=== PATIENT | male | born 1950 | race Caucasian/White ===

== ENCOUNTER 2016-11-15 08:46 | Day surgery (SDC) | payer BC, OTHER ==
[2016-11-15 09:27] VITALS: BMI 26.6
[2016-11-15] MEDS ORDERED: PROPOFOL 20 ML ONE ×3 (09:50)
[2016-11-15 11:26] VITALS: TEMP 97.4
[2016-11-15 12:24] VITALS: BP 124/64; PULSE 60
--- NOTE | 2016-11-16 12:14 | PATH ---
Surgical Pathology Report Patient Name: MAIKEL JULIEN [facility]. Rec. #: [id number] /Age/Gender: 1950 (Age: 65) / M Account: [id number] Location: ASU-ENDOSCOPY Taken: 11/15/2016 Received: 11/15/2016 Reported: 11/16/2016 Physicians: Bijan Savage M.D. Specimen(s) Received A: BX RECTAL POLYPS x3 B: POLYP SIGMOID C: DESCENDING COLON POLYP D: MID TRANSVERSE COLON POLYP E: HEPATIC FLEXURE COLON POLYP F: BX CECAL POLYP G: PROXIMAL TRANSVERSE COLON POLPYP Clinical History Screening Multiple colon polyps, diverticulosis Final Diagnosis A. RECTUM, POLYPS x3, BIOPSY: TUBULAR ADENOMA x1. FRAGMENTS OF HYPERPLASTIC POLYPS x5. B. COLON, SIGMOID, POLYPECTOMY: TUBULOVILLOUS ADENOMA. Comment: A cauterized margin of resection appears free of adenoma; however, the completeness of resection is best assessed endoscopically. C. COLON, DESCENDING, POLYP, POLYPECTOMY: TUBULAR ADENOMA. D. COLON, MID TRANSVERSE, POLYP, POLYPECTOMY: HYPERPLASTIC TYPE POLYP WITH FEATURES OF SESSILE SERRATED ADENOMA. E. COLON, HEPATIC FLEXURE, POLYP, POLYPECTOMY: MULTIPLE FRAGMENTS OF TUBULAR ADENOMA. F. COLON, CECUM, POLYP, BIOPSY: POLYPOID FRAGMENTS OF COLONIC MUCOSA SUGGESTIVE OF INFLAMMATORY/POSTINFLAMMATORY TYPE POLYP. G. COLON, PROXIMAL TRANSVERSE, POLYP POLYPECTOMY: FRAGMENTS OF TUBULAR ADENOMA. Electronically Signed Carlos Gutierrez M.D. Gross Description A. Received in formalin, labeled "biopsy rectal polyps" are 4 curiel, irregular portions of soft tissue ranging from 0.2-0.5 cm in greatest dimension. The specimens are submitted in toto in one cassette. B. Received in formalin, labeled "sigmoid polyp" is a 1.4 x 0.6 x 0.6 cm curiel, polypoid portion of soft tissue. The specimen is bisected and entirely submitted in one cassette. C. Received in formalin, labeled "descending colon polyp" are 2 curiel, irregular portions of soft tissue measuring 0.1 and 0.4 cm in greatest dimension. The specimens are submitted in toto in one cassette. D. Received in formalin, labeled "mid transverse colon polyp" is a curiel, irregular portion of soft tissue measuring 0.2 cm in greatest dimension. The specimen is submitted in toto in one cassette. E. Received in formalin, labeled "hepatic flexure colon polyp" are 4 curiel, irregular to polypoid portions of soft tissue ranging from 0.2-0.5 cm. in greatest dimension. The specimens are submitted in toto in one cassette. F. Received in formalin, labeled "biopsy cecal polyp" are 4 curiel, irregular portions of soft tissue averaging 0.1 cm in greatest dimension. The specimens are submitted in toto in one cassette. G. Received in formalin, labeled "proximal transverse colon polyp" are 2 curiel, irregular portions of soft tissue averaging 0.3 cm in greatest dimension. The specimens are submitted in toto in one cassette. 11/15/201611/15/2016
== END 2016-11-15 12:40 | disposition home or self-care (01) ==
LOC: JASU-ENDO 08:46
PROVIDERS: ATTEND Internal Medicine Gastroenterology
PROC: 0DBL8ZX Excision of Transverse Colon, Via Natural or Artificial Opening Endoscopic, Diagnostic (ICD-10-PCS; 2016-11-15)
PROC: 0DBM8ZX Excision of Descending Colon, Via Natural or Artificial Opening Endoscopic, Diagnostic (ICD-10-PCS; 2016-11-15)
PROC: 0DBH8ZX Excision of Cecum, Via Natural or Artificial Opening Endoscopic, Diagnostic (ICD-10-PCS; 2016-11-15)
PROC: 0DBE8ZX Excision of Large Intestine, Via Natural or Artificial Opening Endoscopic, Diagnostic (ICD-10-PCS; 2016-11-15)
PROC: 0DBP8ZX Excision of Rectum, Via Natural or Artificial Opening Endoscopic, Diagnostic (ICD-10-PCS; 2016-11-15)
PROC: 3E0H8GC Introduction of Other Therapeutic Substance into Lower GI, Via Natural or Artificial Opening Endoscopic (ICD-10-PCS; 2016-11-15)
PROC: 0DBN8ZX Excision of Sigmoid Colon, Via Natural or Artificial Opening Endoscopic, Diagnostic (ICD-10-PCS; principal; 2016-11-15 10:00)
DX: Z12.11 Encounter for screening for malignant neoplasm of colon (principal); K62.1 Rectal polyp; D12.4 Benign neoplasm of descending colon; D12.5 Benign neoplasm of sigmoid colon; D12.3 Benign neoplasm of transverse colon; D12.0 Benign neoplasm of cecum; K63.5 Polyp of colon; K57.30 Diverticulosis of large intestine without perforation or abscess without bleeding; K64.8 Other hemorrhoids
CPT/HCPCS: 88305-TC